=== PATIENT | female | born 1970 ===

== ENCOUNTER 2023-05-14 06:40 | Day surgery (SDC) | payer OTHER ==
[2023-05-14] MEDS ORDERED: MIDAZOLAM HCL 2 MG/2 ML VIAL IV ONE (12:30)
[2023-05-14] MEDS ORDERED: fentaNYL CITRATE 50 MCG/ML AMPUL IV PUSH ONE (12:30)
[2023-05-14] MEDS ORDERED: DIPHENHYDRAMINE HCL 50 MG/ML VIAL 1ML IV ONE (12:30)
== END 2023-05-14 13:40 | disposition home or self-care (01) ==
LOC: AMB-ENDOS 06:40
PROVIDERS: ATTEND Colon & Rectal Surgery
DX: K62.1 Rectal polyp (principal); Z12.11 Encounter for screening for malignant neoplasm of colon; K64.8 Other hemorrhoids